=== PATIENT | female | born 1965 | race Asian ===

== ENCOUNTER 2023-07-28 15:03 | Emergency (ER) | payer OTHER ==
[~2023-07-28] VITALS: Ht 167.6 cm; Wt 65.8 kg
[2023-07-28 15:15] VITALS: BP_SYST 109; PULSE 85; RESP 18; TEMP 98.3; O2SAT 98
[2023-07-28 16:10] LABS: BILIRUBIN,URINE NEGATIVE (NEGATIVE); CLARITY/URINE CLEAR (CLEAR); COLOR,URINE YELLOW (YELLOW); GLUCOSE,URINE NEGATIVE (NEGATIVE); KETONES,URINE NEGATIVE (NEGATIVE); LEUKOCYTE ESTERASE ,URINE NEGATIVE (NEGATIVE); NITRITE, URINE NEGATIVE (NEGATIVE); PROTEIN URINE NEGATIVE (NEGATIVE); UROBILINOGEN,URINE 0.2 (0.2-1.0)
[2023-07-28 16:11] LABS: BASOPHILS % (AUTO) 0.5 % (0.0-2.0); EOSINOPHILS # (AUTO) 0.1 K/uL (0.0-0.4); EOSINOPHILS % (AUTO) 1.3 % (0.0-4.0); HEMATOCRIT 22.6 % (36-48); HEMOGLOBIN 7.8 g/dL (12.0-16.0); LYMPHOCYTES # (AUTO) 1.2 K/uL (1.0-5.5); LYMPHOCYTES % (AUTO) 23.3 % (20.5-51.5); MEAN CORPUSCULAR HEMOGLOBIN 30 pg (27-31); MEAN CORPUSCULAR HGB CONC 35 % (32-36); MEAN CORPUSCULAR VOLUME 87 fL (79.0-98.0); MONOCYTES # (AUTO) 0.4 K/uL (0.0-1.0); MONOCYTES % (AUTO) 8.7 % (1.7-9.3); NEUTROPHILS # (AUTO) 3.3 K/uL (1.8-7.7); NEUTROPHILS % (AUTO) 66.2 % (40.0-70.0); PLATELET COUNT (AUTO) 304 K/uL (130-430); RED CELL DISTRIBUTION WIDTH 13.2 % (9.0-15.0)
[2023-07-28 16:35] LABS: BLOOD, URINE TRACE (NEGATIVE)
[2023-07-28 16:40] LABS: PROTHROMBIN TIME 10.3 SECS (9.5-12.5)
[2023-07-28 16:57] LABS: BACTERIA,URINE None Seen /HPF (None Seen)
[2023-07-28 17:17] LABS: ALBUMIN 3.1 g/dL (3.4-4.8); BILIRUBIN,DIRECT 0.1 mg/dL (0.0-0.3); CALCIUM 8.9 mg/dL (8.4-11.0); CREATININE 0.8 mg/dL (0.55-1.30); TOTAL BILIRUBIN 0.3 mg/dL (0.0-1.0); TOTAL PROTEIN, SERUM 7.6 g/dL (6.4-8.3)
[2023-07-28 20:15] VITALS: BP_SYST 130; PULSE 88; RESP 20; TEMP 99.5; O2SAT 100
== END 2023-07-28 20:15 | disposition home or self-care (01) ==
LOC: SED 15:03
DX: D64.9 Anemia, unspecified (principal); R53.1 Weakness; R42 Dizziness and giddiness; Z85.43 Personal history of malignant neoplasm of ovary; Z79.899 Other long term (current) drug therapy
CPT/HCPCS: 99285; 71045; 80076; 80048; 81001; 82550; 83690; 85025; 85610; 85730; 86886; 86900; 86901; 86920; 36415; 93005; 83605; 81000; 81015; P9021